=== PATIENT | male | born 1995 | race Asian ===

== ENCOUNTER 2016-11-19 15:27 | Emergency (ER) | payer MEDICAID ==
[2016-11-19] MEDS ORDERED: LIDOCAINE HCL 20 ML VIAL ONE (16:04)
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
[2016-11-19 16:56] VITALS: BP 134/82
== END 2016-11-19 17:00 | disposition home or self-care (01) ==
LOC: ER 15:27
PROC: 0JQ10ZZ Repair Face Subcutaneous Tissue and Fascia, Open Approach (ICD-10-PCS; principal; 2016-11-19)
DX: S03.2XXA Dislocation of tooth, initial encounter (principal); V86.59XA Driver of other special all-terrain or other off-road motor vehicle injured in nontraffic accident, initial encounter; Y93.I9 Activity, other involving external motion; Y92.9 Unspecified place or not applicable; Y99.9 Unspecified external cause status